=== PATIENT | male | born 1965 | race Two or more races ===

== ENCOUNTER 2018-06-06 22:18 | Emergency (ER) | payer SELFPAY ==
--- NOTE | 2018-06-06 22:44 | EDPHY ---
H & P Stated Complaint: nausea, bloated, restless, burning with urination. Seen at [facility] Time Seen by Provider: 06/06/18 22:34 HPI/ROS: Chief Complaint: Restless, nauseated, abdominal discomfort HPI: 53-year-old type 2 diabetic male presenting emergency department with 3 days of general abdominal discomfort, nausea without vomiting, a little bit of discomfort after urination and difficulty sleeping. He has been having restless legs and feels like agitated. He was seen at [facility] earlier today and was diagnosed with a viral illness. He was started on omeprazole and doxepin is not any relief. Patient states he feels very jumpy like he is going to crawl out of his skin and cannot sit still. Continue have some upper abdominal discomfort. No nausea or vomiting. He has some dark stools after taking Pepto-Bismol but has not had any dark stools otherwise. No fevers or chills. No cough. No chest pain shortness of breath. ROS: 10 systems were reviewed and were negative except those elements noted in the HPI. PMH: Type 2 diabetes Social History: No smoking, no alcohol, no recreational drug use Family History: non-contributory Physical Exam: Gen: Awake, Alert, No Distress HEENT: Nose: no rhinorrhea Eyes: PERRLA, EOMI Mouth: Moist mucosa Neck: Supple, no JVD Chest: nontender, lungs clear to auscultation Heart: S1, S2 normal, no murmur Abd: Soft, non-tender, no guarding Back: no CVA tenderness, no midline tenderness Ext: no edema, non-tender Skin: no rash Neuro: CN II-XII intact, Sensation grossly intact, Strength 5/5 in bilateral upper and lower extremities - Personal History Current Tetanus/Diphtheria Vaccine: Unsure Current Tetanus Diphtheria and Acellular Pertussis (TDAP): Unsure - Medical/Surgical History Hx Asthma: No Hx Chronic Respiratory Disease: No Hx Diabetes: No Hx Cardiac Disease: No Hx Renal Disease: No Hx Cirrhosis: No Hx Alcoholism: No Hx HIV/AIDS: No Hx Splenectomy or Spleen Trauma: No Other PMH: Type 2 DM, shingles - Social History Smoking Status: Never smoked Constitutional: Initial Vital Signs Temperature (C) 36.7 C 06/06/18 22:22 Heart Rate 88 12/28/18 22:22 Respiratory Rate 18 06/06/18 22:22 Blood Pressure 174/85 H 06/06/18 22:22 O2 Sat (%) 97 06/06/18 22:22 O2 Delivery Mode Room Air Allergies/Adverse Reactions: No Known Allergies Allergy (Unverified 06/06/18 22:20) Home Medications: Medication Instructions Recorded Doxepin HCl 06/06/18 Insulin Aspart Novolog 70/30 06/06/18 Omeprazole 06/06/18 Medical Decision Making ED Course/Re-evaluation: 53-year-old presenting with, restless legs general malaise some abdominal discomfort. Laboratory evaluations including urinalysis or neck here. I agree with the [facility] assessment that this is likely a viral illness. He actually states he is feeling better after having taken the doxepin and ibuprofen at home. Plan will be for discharge. He has continued difficulty sleeping he can add on some diphenhydramine. He will follow up with his primary care physician. - Data Points Laboratory Results: Laboratory Results 06/06/18 22:56 06/06/18 22:56 06/06/18 06/06/18 06/06/18 22:56 22:56 22:50 WBC 11.08 10^3/uL H 10^3/uL (3.80-9.50) RBC 4.83 10^6/uL 10^6/uL (4.40-6.38) Hgb 14.9 g/dL g/dL (13.7-17.5) Hct 42.8 % % (40.0-51.0) MCV 88.6 fL fL (81.5-99.8) MCH 30.8 pg pg (27.9-34.1) MCHC 34.8 g/dL g/dL (32.4-36.7) RDW 11.6 % % (11.5-15.2) Plt Count 282 10^3/uL 10^3/uL (150-400) MPV 8.8 fL fL (8.7-11.7) Neut % (Auto) 57.9 % % (39.3-74.2) Lymph % (Auto) 26.4 % % (15.0-45.0) [place] % (Auto) 10.6 % % (4.5-13.0) Eos % (Auto) 3.8 % % (0.6-7.6) Baso % (Auto) 1.0 % % (0.3-1.7) Nucleat RBC Rel Count 0.0 % % (0.0-0.2) Absolute Neuts (auto) 6.43 10^3/uL 10^3/uL (1.70-6.50) Absolute Lymphs (auto) 2.92 10^3/uL 10^3/uL (1.00-3.00) Absolute Monos (auto) 1.17 10^3/uL H 10^3/uL (0.30-0.80) Absolute Eos (auto) 0.42 10^3/uL H 10^3/uL (0.03-0.40) Absolute Basos (auto) 0.11 10^3/uL H 10^3/uL (0.02-0.10) Absolute Nucleated RBC 0.00 10^3/uL 10^3/uL (0-0.01) Immature Gran % 0.3 % % (0.0-1.1) Immature Gran # 0.03 10^3/uL 10^3/uL (0.00-0.10) Sodium 133 mEq/L L mEq/L (135-145) Potassium 3.9 mEq/L mEq/L (3.5-5.2) Chloride 99 mEq/L mEq/L (97-110) Carbon Dioxide 27 mEq/l mEq/l (22-31) Anion Gap 7 mEq/L mEq/L (6-14) BUN 20 mg/dL mg/dL (7-23) Creatinine 1.1 mg/dL mg/dL (0.7-1.3) Estimated GFR > 60 Glucose 93 mg/dL mg/dL (70-100) Calcium 9.1 mg/dL mg/dL (8.5-10.4) Urine Color PALE YELLOW Urine Appearance CLEAR Urine pH 5.0 (5.0-7.5) Ur Specific [place] 1.004 (1.002-1.030) Urine Protein NEGATIVE (NEGATIVE) Urine Ketones NEGATIVE (NEGATIVE) Urine Blood NEGATIVE (NEGATIVE) Urine Nitrate NEGATIVE (NEGATIVE) Urine Bilirubin NEGATIVE (NEGATIVE) Urine Urobilinogen NEGATIVE EU EU (0.2-1.0) Ur Leukocyte Esterase NEGATIVE (NEGATIVE) Urine Glucose NEGATIVE (NEGATIVE) Departure - Departure Disposition: Home, Routine, Self-Care Clinical Impression: Viral syndrome Condition: Good Instructions: Viral Syndrome (ED) Additional Instructions: Continue taking the medications as prescribed by her primary care physician. If you continue to have difficulty sleeping you may add Benadryl, 25 mg at bedtime. Follow up with primary care physician in 3-4 days if symptoms are not improving. Referrals: [facility],. [Clinic] - As per Instructions
[2018-06-06 23:02] LABS: PLATELET COUNT 282 10^3/uL (150-400)
[2018-06-07 00:46] VITALS: BP 136/83
== END 2018-06-07 00:32 | disposition home or self-care (01) ==
DX: B34.9 Viral infection, unspecified (principal)